=== PATIENT | female | born 1970 | race Caucasian/White ===

== ENCOUNTER → 2016-06-15 | Outpatient (CLI) | payer OTHER ==
[~2016-06-15] MED LIST: COLACE 100MG C100 MG PO; FLOVENT DISKUS50 MCG INH; LORTAB 7.5-3251 EACH PO; PROTONIX 40 MG40 M1 PO; ROPINIROLE HCL1 MG PO
== END ==
LOC: EXRD 11:18
DX: M54.9 Dorsalgia, unspecified (principal); M25.78 Osteophyte, vertebrae
CPT/HCPCS: 72070

== ENCOUNTER 2016-07-07 05:20 | Emergency (ER) | payer OTHER ==
[2016-07-07 06:42] LABS: HEMOGLOBIN 14.3 gm/dl (12.3-15.3); RED BLOOD COUNT 4.38 M/UL (4.00-5.10); WHITE BLOOD COUNT 10.3 K/UL (4.5-11.0)
[2016-07-07 07:00] LABS: BUN/CREATININE RATIO 18 (0-10)
[2016-07-15] MEDS ORDERED: COLACE 100MG C100 MG PO (08:45)
[2016-07-15] MEDS ORDERED: FLOVENT DISKUS50 MCG INH (08:46)
[2016-07-15] MEDS ORDERED: PROTONIX 40 MG40 M1 PO (08:47)
[2016-07-15] MEDS ORDERED: ROPINIROLE HCL1 MG PO (08:47)
[2016-07-15] MEDS ORDERED: LORTAB 7.5-3251 EACH PO (12:47)
== END 2016-07-07 15:05 | disposition home or self-care (01) ==
LOC: ER1 05:20
PROVIDERS: Family Medicine
DX: R10.11 Right upper quadrant pain (principal); R11.2 Nausea with vomiting, unspecified
CPT/HCPCS: 36415; 71010; 76705; 80053; 81001; 82150; 82550; 82553; 83690; 83874; 84484; 84703; 85025; 93005; 96374; 96375; 96376; 99284; J2060; J2270; J2405; J7030; J7050; Q9962

== ENCOUNTER → 2016-07-14 | Outpatient (CLI) | payer OTHER | LOC: OPSV2 12:06 | DX: Z01.812 Encounter for preprocedural laboratory examination (principal); K80.20 Calculus of gallbladder without cholecystitis without obstruction | CPT/HCPCS: 84703 ==

== ENCOUNTER → 2016-07-15 | Day surgery (SDC) | payer OTHER ==
[~2016-07-15] VITALS: Ht 167.6 cm; Wt 86.2 kg
== END | disposition home or self-care (01) ==
LOC: OR 08:07
PROVIDERS: Surgery
PROC: 0FT44ZZ Resection of Gallbladder, Percutaneous Endoscopic Approach (ICD-10-PCS; principal; 2016-07-15 09:45)
DX: K80.10 Calculus of gallbladder with chronic cholecystitis without obstruction (principal); G43.909 Migraine, unspecified, not intractable, without status migrainosus; G25.81 Restless legs syndrome; E55.9 Vitamin D deficiency, unspecified; E27.8 Other specified disorders of adrenal gland; G89.29 Other chronic pain; I10 Essential (primary) hypertension; F17.210 Nicotine dependence, cigarettes, uncomplicated; E78.00 Pure hypercholesterolemia, unspecified; Z79.899 Other long term (current) drug therapy; Z87.442 Personal history of urinary calculi; Z87.19 Personal history of other diseases of the digestive system
CPT/HCPCS: J0690; J1100; J1885; J2250; J2405; J2710; J3010; J7030; J7120; Q9962